=== PATIENT | male | born 1985 | race Native Hawaiian/Other Pacific Islander ===

== ENCOUNTER 2022-11-08 20:30 | Emergency (ER) | payer OTHER ==
[~2022-11-08] VITALS: Ht 177.8 cm; Wt 59.0 kg
[2022-11-08 20:30] VITALS: BP 90/60; TEMP 98.7
[2022-11-08 21:17] LABS: PLATELET COUNT 369 K/uL (142-355)
[2022-11-08 21:34] LABS: POTASSIUM 5.6 mmol/L (3.6-5.2)
[2022-11-09 02:38] LABS: PLATELET COUNT 249 K/uL (142-355)
[2022-11-09 02:47] LABS: POTASSIUM 4.5 mmol/L (3.6-5.2)
== END 2022-11-09 14:35 | disposition still patient (30) ==
LOC: ED 20:30
PROVIDERS: Family Medicine
DX: F19.10 Other psychoactive substance abuse, uncomplicated (principal)
CPT/HCPCS: 36415; 80053; 80307; 81000; 85027; 93005; 96360; 96361; 96374; 99284; J1200; J2060